=== PATIENT | female | born 1960 | race Caucasian/White ===

== ENCOUNTER 2020-12-11 09:32 | Emergency (ER) | payer OTHER ==
[2020-12-11 10:30] LABS: BASOPHIL 0.4 % (0-2); EOSINOPHIL 0.7 % (0-5); HCT 44.3 % (37.0-47.0); HGB 14.8 g/dl (12.5-16.0); LYMPHOCYTE 36.5 % (15-48); MCH 31.9 pg (25.0-31.0); MCHC 33.4 g/dL (32.0-36.0); MCV 95.5 fL (78.0-100.0); MONOCYTE 11.1 % (0-12); MPV 13.8 fL (6.0-9.5); NEUTROPHIL 51.1 % (41-80); NRBC 0; PLT 271 K/uL (150-400); RBC 4.64 M/uL (4.20-5.40); RDW 15.7 % (11.5-14.0); WBC 8.1 K/uL (4.0-10.5)
[2020-12-11 10:35] LABS: INR 0.95 (0.9-1.2); PTT 30.5 SECONDS (22.2-34.7)
[2020-12-11 10:43] LABS: IRON % SATURATION 11.3 %SAT (20-50)
[2020-12-11 10:52] LABS: PRO-BNP 124 pg/mL (<125)
[2020-12-11 10:54] LABS: ALBUMIN 3.2 g/dL (3.4-5.0); BILIRUBIN - TOTAL 0.3 mg/dL (0.2-1.0); BUN/CREAT RATIO (CALC) 12.5 RATIO; C-REACTIVE PROTEIN 8.7 mg/dL (<=0.90); CREATININE 0.72 mg/dL (0.51-0.95); GLOBULIN (CALCULATION) 4.6 g/dL; MAGNESIUM 1.9 mg/dL (1.8-2.4); POTASSIUM 3.8 mmol/L (3.5-5.1); TOTAL PROTEIN 7.8 g/dL (6.4-8.2)
[2020-12-11 11:05] LABS: LACTIC ACID 0.9 mmol/L (0.4-1.9)
[2020-12-11] MEDS ORDERED: TESSALON PERLE100 M1 PO (14:19)
[2020-12-11] MEDS ORDERED: MEDROL 4MG DOSEP4 MG PO (14:19)
[2020-12-11] MEDS ORDERED: ZOFRAN4 M1 PO (14:47)
[2020-12-11] MEDS ORDERED: PHENERGAN25 M1 PO (14:47)
== END 2020-12-11 15:11 | disposition home or self-care (01) ==
LOC: FER 09:32
PROVIDERS: Emergency Medicine
DX: U07.1 COVID-19 (principal); G43.909 Migraine, unspecified, not intractable, without status migrainosus; Z79.899 Other long term (current) drug therapy; Z88.1 Allergy status to other antibiotic agents; Z88.8 Allergy status to other drugs, medicaments and biological substances
CPT/HCPCS: 36415; 80053; 82728; 83540; 83550; 83605; 83615; 83690; 83735; 83880; 84145; 84484; 85025; 85610; 85730; 86140; 87040; 93005; J0780; J1170; J2405; J2550; J7030